=== PATIENT | female | born 1970 | race Caucasian/White ===

== ENCOUNTER → 2021-04-25 | Outpatient (CLI) | payer BC, OTHER | LOC: MAMO 09:47 | DX: Z12.31 Encounter for screening mammogram for malignant neoplasm of breast (principal) | CPT/HCPCS: 77063; 77067 ==

== ENCOUNTER → 2021-08-12 | Outpatient (CLI) | payer BC, OTHER | LOC: KOH-I 13:42 | DX: M25.571 Pain in right ankle and joints of right foot (principal); M79.671 Pain in right foot; M19.071 Primary osteoarthritis, right ankle and foot | CPT/HCPCS: 73610; 73630 ==

== ENCOUNTER → 2021-08-27 | Outpatient (CLI) | payer BC, OTHER | LOC: KOH-I 13:26 | DX: S82.891B Other fracture of right lower leg, initial encounter for open fracture type I or II (principal); S93.01XD Subluxation of right ankle joint, subsequent encounter | CPT/HCPCS: 73700 ==

== ENCOUNTER → 2021-12-04 | Outpatient (CLI) | payer BC, OTHER | LOC: KOH-I 13:48 | DX: S92.001D Unspecified fracture of right calcaneus, subsequent encounter for fracture with routine healing (principal); X58.XXXD Exposure to other specified factors, subsequent encounter | CPT/HCPCS: 73650 ==